=== PATIENT | male | born 1940 | race Caucasian/White ===

== ENCOUNTER → 2016-04-15 | Outpatient (CLI) | payer OTHER ==
[~2016-04-15] MED LIST: ARTIFICAL TEARS OPB; ASPCH81 PO; CHOL1000 PO; CHOL1CAP30; CYAN10005 PO; FINA5TAB PO; FLM4 PO; HYDR-4330 PO; HYDR-5688 PO; LEVO25TA5 PO; MORP30TA23 PO; MORPHINE SULFATE PO; MULT-506 PO; NIFE30TA83 PO; NTRAR UT; NTRGSL/4 UT; STLS PO; VITACAP26 PO; VITBC PO
== END | disposition home or self-care (01) ==
LOC: C.PATHSPEC 11:01
PROVIDERS: ATTEND Plastic Surgery
DX: L82.1 Other seborrheic keratosis (principal)

== ENCOUNTER → 2016-06-22 | Day surgery (SDC) | payer OTHER ==
[2016-04-16 09:01] VITALS: BMI 21.0
[2016-04-30 11:37] VITALS: BMI 21.0
[2016-05-27 07:30] VITALS: Ht 175.3 cm; Wt 67.3 kg
[~2016-06-22] VITALS: Ht 175.3 cm; Wt 67.3 kg
[~2016-06-22] MED LIST changes: -ARTIFICAL TEARS OPB; +ATROPINE SULFATE 0.1 MG/ML 5ML SYR IV PRN; +BUPIVACAINE 0.5 % 5 MG/1 ML PF 10ML VIAL ONE; +BUPIVACAINE 0.5% - PF INJ ONE; +CEFAZOLIN 1000MG/55 ML D5W IV SCH; -CHOL1CAP30; +DEXAMETHASONE SOD INJ 4 MG/ML VIAL ONE; +EpHEDrine SULFATE INJ 50 MG/ML AMP IV PRN; +FENTANYL CITRATE INJ 50 MCG/1 ML 2 ML VIAL IV PRN; +FENTANYL CITRATE INJ 50 MCG/1 ML 2 ML VIAL ONE; +LACTATED RINGER'S 1000ML 1,000 ML IV SCH; +LIDOCAINE HCL 1% 20 ML VIAL ONE; +LIDOCAINE HCL 2% 2 ML VIAL (20MG/ML) ONE; +MIDAZOLAM HCL 1 MG/ML 2ML VIAL ONE; -MORPHINE SULFATE PO; -NTRAR UT; +ONDANSETRON INJ 2 MG/ML 2 ML VIAL IV PRN; +ONDANSETRON INJ 2 MG/ML 2 ML VIAL ONE; +OXYCODONE/ACETAMINOPHEN 5-325 TAB PO PRN; +PROPOFOL IV EMULSION 10 MG/ML 20 ML VIAL IV ONE; +SODIUM CHLORIDE 0.9% 1000ML 1,000 ML IV SCH; -STLS PO
--- NOTE | 2016-06-22 08:58 | History & Physical Bridge - [place] ---
H&P Re-Evaluation Bridge Note: I have examined the patient, reviewed the History & Physical and in the interval since the performance of the History & Physical I have noted the following changes of clinical significance: No changes noted
--- NOTE | 2016-06-22 11:18 | [facility] Post Operative Brief Note ---
Immediate Operative Summary Operative Date Jun 22, 2016. Pre-Operative Diagnosis Right Wrist Carpal Tunnel Syndrome, Right Elbow Cubital Tunnel Syndrome Post-Operative Diagnosis Same Procedure(s) Performed Right Ulnar Nerve Decompression Versus Transposition, Right Carpal Tunnel Release, Right Thumb Cyst Excision Surgeon Dr. Oumou Madera [employer] Operator Surgeon(s) Renay Myers PA-C Estimated Blood Loss 0 Findings ABOVE Specimens None Anesthesia LMA Complication(s) None Disposition Recovery Room / PACU
--- NOTE | 2016-06-22 11:26 | Discharge Instructions-SurgCtr ---
Discharge Instructions Date of Service Jun 22, 2016. Visit Reason for Visit: Right Wrist Cts, Right Eblow Cubital Tunnel Syndro, R CTS Discharge Discharge Diagnosis / Problem: SAME ABOVE Discharge Goals Goal(s): Decrease discomfort, Improve function Activity Recommendations Activity Limitations: as noted below Lifting Limitations: until after follow-up appointment Exercise/Sports Limitations: until after follow-up appointment Shower/Bathe: keep incision dry Anesthesia . Post Anesthesia Instructions: If you have had General Anesthesia or IV Sedation: * Do not drive today. * Resume driving when surgeon permits. * Do not make important decisions or sign legal documents today. * Call surgeon for: 1. Temperature elevations greater than 101 degrees F. 2. Uncontrollable pain. 3. Excessive bleeding. 4. Persistent nausea and vomiting. 5. Medication intolerance (nausea, vomiting or rash). * For nausea and vomiting use only clear liquids such as: tea, soda, bouillon until nausea subsides, then gradually increase diet as tolerated. * If you have any concerns or questions, call your surgeon's office. If physician is unavailable and it is an emergency, call 911 or go to the nearest emergency room. . Instructions / Follow-Up Instructions / Follow-Up MEDICATIONS: * Resume previous medications unless instructed otherwise by your surgeon. * Always take pain medication on a full stomach or with food to avoid upset stomach. * Do not drink alcohol or drive while taking narcotics. * Ibuprofen or Tylenol may be taken if narcotic not needed. SPECIAL CARE INSTRUCTIONS: __ None _X_ Keep extremity elevated and iced x 48 hours; apply ice 20-30 minutes 8-10 times/day. May remove at night. _X_ Sling __24 hrs/day _X_ Remove at night __ Shoulder Immobilizer __ 24 hrs/day __ Remove at night _X_ Dressing _X_ Maintain until seen in office, may shower with plastic over site __ Remove dressings in 24-48 hours and then may shower __ Cover incisions with band-aids after showering __ Do not remove steri-strips Call physician if chills or temperature rises above 102 degrees or pain unrelieved by prescribed pain medications at . . Diet Recommendations Home Diet: resume previous diet Procedures Procedures Performed: Right Ulnar Nerve Decompression Versus Transposition, Right Carpal Tunnel Release, Right Thumb Cyst Excision Pending Studies Studies pending at discharge: no Medical Emergencies . Who to Call and When: Medical Emergencies: If at any time you feel your situation is an emergency, please call 911 immediately. . Non-Emergent Contact Non-Emergency issues call your: Primary Care Provider . . "Provider Documentation" section prepared by Addison Myers.
--- NOTE | 2016-06-22 12:12 | OPERATIVE REPORT ---
DATE OF OPERATION: 06/22/2016 PREOPERATIVE DIAGNOSES: 1. Right ulnar nerve entrapment elbow. 2. Right carpal tunnel syndrome. 3. Painful cyst, right thumb. POSTOPERATIVE DIAGNOSES: 1. Right ulnar nerve entrapment elbow. 2. Right carpal tunnel syndrome. 3. Painful cyst, right thumb epidermoid cyst. PROCEDURE: 1. Decompression ulnar nerve, right elbow. 2. Decompression median nerve, right wrist. 3. Removal epidermoid cyst, right thumb. SURGEON: Dr. Madera. ROOFER: Addison Myers PA-C. ANESTHESIOLOGIST: Dr. Vasquez. ANESTHESIA: LMA. DRAINS: None. COMPLICATIONS: None. CONDITION: The patient tolerated the procedure well and returned to recovery room in apparent satisfactory condition. INDICATIONS FOR SURGERY: Hank is a 75-year-old male who has had numbness and tingling in his hand involving both the ulnar and median nerves and also developed a cyst on the thumb, right distal to the IP joint on the radial side, asked me to take it off at the same time. The procedure, expected outcomes, side effects were all explained in detail including long-term healing of the ulnar nerve decompression in comparison to the median nerve. They understand, he had the procedure done on the left side. PROCEDURE: The patient was taken to the OR at which time he was placed supine on the operating table and put to sleep by anesthesia department. The right arm was prepped and draped in usual sterile fashion for surgery. We first started with the cyst. We exsanguinated the whole arm and put axillary tourniquet up to 250 mmHg. We then exposed the cyst on the thumb, dissected down with loupe magnification and found some cheesy like material indicative of an epidermoid cyst, it was removed in whole. Electrocautery was used to control the areas of bleeding. We closed with interrupted 4-0 nylon suture. Attention was given to the carpal tunnel. We made a vertical incision over the carpal tunnel, dissected down and divided the transverse carpal ligament under loupe magnification, a small portion of the forearm fourth fascia was divided also. Wound then was copiously irrigated. Electrocautery was used to control any areas of potential bleeding. We then closed with interrupted 4-0 nylon sutures. We put sterile dressings on the thumb and hand and then began exposure on the ulnar nerve of the elbow. Using a curvilinear incision just posterior to the medial epicondyle with loupe magnification we dissected down and identified the ulnar nerve. You could see it was entrapped right at the flexion portion of the arm. We just unroofed it, decompressed it. We did not mobilize it at all. We took the arm through a range of motion, it was not subluxating, it was decompressed both proximal to distal. Wound was irrigated. It was closed with interrupted 4-0 nylon sutures. Skin clips were placed in the skin edges. The whole arm then was incorporated into the dressing with a soft roll and posterior splint and Juan Jose bandage. Arm was put in about 70 degrees of flexion and returned back to recovery room in apparent satisfactory condition. I attest to the content of the Intraoperative Record and any orders documented therein. Any exceptions are noted below. ALEX
--- NOTE | 2016-06-22 12:34 | Anesthesia Progress Nt - [facility] ---
Anesthesia Post Op Note Date & Time Jun 22, 2016 at 12:33 Vital Signs Pain Intensity: 0 Vital Signs Past 12 Hours Date Time Temp Pulse Resp B/P Pulse Ox O2 Delivery O2 Flow Rate FiO2 06/22/16 11:55 36.5 66 16 152/76 98 Room Air 06/22/16 11:47 77 19 06/22/16 11:47 78 19 97 06/22/16 11:45 37.0 96 Room Air 06/22/16 11:45 176/77 06/22/16 11:42 72 19 96 06/22/16 11:42 73 19 06/22/16 11:41 167/72 06/22/16 11:38 74 12 96 06/22/16 11:38 72 12 06/22/16 11:37 73 23 06/22/16 11:37 72 23 97 06/22/16 11:35 172/82 06/22/16 11:32 67 19 98 06/22/16 11:32 70 19 06/22/16 11:31 68 17 06/22/16 11:31 68 17 98 06/22/16 11:30 178/71 06/22/16 11:26 80 21 98 06/22/16 11:26 79 21 06/22/16 11:25 180/68 06/22/16 11:24 76 19 06/22/16 11:24 77 19 97 06/22/16 11:20 174/101 06/22/16 11:19 36.3 76 16 174/101 99 Mask 7 06/22/16 08:59 36.6 56 20 165/84 97 Room Air Notes Mental Status: alert / awake / arousable, participated in evaluation Pt Amnestic to Procedure: Yes Nausea / Vomiting: adequately controlled Pain: adequately controlled Airway Patency, RR, SpO2: stable & adequate BP & HR: stable & adequate Hydration State: stable & adequate Anesthetic Complications: no major complications apparent
[2016-06-22 12:39] VITALS: BP 160/66; PULSE 68; TEMP 36.5; O2SAT 98
--- NOTE | 2016-06-24 06:07 | EDITING REQUIRED CODING QUERY ---
CODING QUERY To promote full compliance with coding requirements relating to patient care, provider participation is requested in all cases of lumber marker uncertainty. Please assist us with the question(s) below: Coding Question(s): Please clarify the size of the epidermoid cyst removed from the right thumb. 2mm x 1mm Physician's Response(s): Thank you Vero Perez Principal Diagnosis: "_that condition established after study, to be chiefly responsible for occasioning the admission of the patient to the hospital for care." Co-Existing Principal Diagnosis: "_when two or more diagnoses equally meet the criteria for principal diagnosis as determined by the circumstances of admission, diagnostic work up, and/or therapy provided, and the Alphabetic Index, Tabular List, or another coding guideline does not provide sequencing direction, any one of the diagnoses may be sequenced first." "When the physician has documented what appears to be a current diagnosis in the body of the record, but has not included the diagnosis in the final diagnostic statement, the physician should be asked whether the diagnosis should be added." (Source [facility] 2 QTR90. p3-4)
== END | disposition home or self-care (01) ==
LOC: X.SURG 08:30
PROVIDERS: ATTEND Orthopaedic Surgery
DX: G56.21 Lesion of ulnar nerve, right upper limb (principal); G56.01 Carpal tunnel syndrome, right upper limb; L72.0 Epidermal cyst; I10 Essential (primary) hypertension; Z98.890 Other specified postprocedural states; E03.9 Hypothyroidism, unspecified